=== PATIENT | female | born 1995 | race American Indian/Alaskan Native ===

== ENCOUNTER 2017-03-03 08:36 | Outpatient (CLI) | payer MEDICAID ==
[2017-03-03 09:01] VITALS: BP 108/61
[2017-03-03 09:56] LABS: Bacteria,Urine 2+ /HPF (Negative); Bilirubin,Urine NEG (Negative); Blood,Urine NEG (Negative); Ketones,Urine NEG (Negative); Leukocyte Esterase,Urine SM (Negative); Mucus,Urine FEW /HPF; Nitrite,Urine NEG (Negative); Protein,Urine <15 mg/dL mg/dL (Negative)
== END 2017-03-03 10:09 | disposition home or self-care (01) ==
LOC: TRG 08:36
PROVIDERS: ATTEND Obstetrics & Gynecology
DX: O47.03 False labor before 37 completed weeks of gestation, third trimester (principal); Z3A.30 30 weeks gestation of pregnancy
CPT/HCPCS: 81001

== ENCOUNTER 2018-05-19 19:13 | Emergency (ER) | payer OTHER, MEDICAID ==
[2018-05-19 19:29] VITALS: BP 141/80
--- NOTE | 2018-05-19 19:31 | Emergency Department Report ---
Blank Doc - Documentation Documentation: This is a 22 y.o. 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 Patient is 11 weeks gestation. Patient reports bleeding started out light and increased to heavy bleeding. See is followed by [facility]. Patient can't recall LMP, A0. Ordered labs. Fast track for further evaluation.
[2018-05-19 20:14] LABS: Basophils % (Auto) 0.1 % (0.0-1.8); Eosinophils % (Auto) 0.5 % (0.0-4.3); Hematocrit 33.3 % (30.3-42.9); Lymphocytes # (Auto) 1.9 K/mm3 (1.2-5.4); Lymphocytes % (Auto) 20.4 % (13.4-35.0); Mean Corpuscular HGB Conc 33 % (30-34); Mean Corpuscular Volume 84 fl (79-97); Monocytes # (Auto) 0.7 K/mm3 (0.0-0.8); Platelet Count 263 K/mm3 (140-440); Red Blood Count 3.98 M/mm3 (3.65-5.03)
[2018-05-19 20:19] LABS: Red Cell Distribution Width 20.4 % (13.2-15.2)
--- NOTE | 2018-05-19 22:52 | Ultrasound Report ---
PROCEDURE: US OB <= 14 WEEKS FETUS HISTORY: vaginal bleed FINDINGS: Real-time ultrasound of the pelvis was performed by transabdominal and endovaginal techniqu e. There is an intrauterine gestational sac with size corresponding to 6 weeks and 6 days gestational ag e. No pole or yolk sac is seen. This does not appear to represent a viable gestation. It could represent a blighted ovum. The right ovary measures 2.7 x 1.5 x 2.0 cm contains a hemorrhagic cyst or luteal cyst measuring 1.0 x 1.0 x 0.9 cm. The left or measures 2.8 x 1.3 x 1.7 cm and contains a hemorrhagic cyst or luteal cyst measuring 1.4 x 1.1 x 1.2 cm. IMPRESSION: Intrauterine gestational sac without pole or yolk sac. This does not appear to repr esent a viable gestation but could represent a blighted ovum This document is electronically signed by Theo Rodas MD., May 19 2018 10:50:35 PM ET
--- NOTE | 2018-05-20 00:17 | Emergency Department Report ---
ED HPI - General Chief complaint: Urogenital-Female Stated complaint: 11WEEKS BLEEDING HEAVY Time Seen by Provider: 05/19/18 19:26 Source: patient Mode of arrival: Ambulatory Limitations: No Limitations - History of Present Illness Initial comments: Pt is a 22 yo female who presents to the ED with c/o vaginal bleeding that began 2-3 days ago. She states initially it was just spotting but has become heavier to the point where she is having to use pads. She states that she was told she is 11 weeks gestation by the health clinic. She had not yet had an OB US. She states she has suprapubic cramping but no abdominal pain. The patient denies any fever, N/V/D, urinary sx. /P:1. Pt is unsure of LNMP she believes it was sometime around the end of February. Complaint: vaginal bleeding Onset/Timin -: days(s) Vaginal bleeding: heavy :: Yes Number of weeks : 11 OB History - Previous Pregnancies: no complications - Related Data : 2 Para: 1 Ab: 0 Home Medications Medication Instructions Recorded Confirmed Last Taken No Known Home Medications [No 01/14/17 01/14/17 Unknown Reported Home Medications] Allergies Allergy/AdvReac Type Severity Reaction Status Date / Time No Known Allergies Allergy Verified 01/14/17 17:07 ED Review of Systems ROS: Stated complaint: 11WEEKS BLEEDING HEAVY Other details as noted in HPI Comment: All other systems reviewed and negative Genitourinary: as per HPI. denies: urgency, dysuria, frequency, discharge ED Past Medical Hx - Past Medical History Previous Medical History?: No Hx Hypertension: No Hx Diabetes: No Hx Deep Vein Thrombosis: No Hx Renal Disease: No Hx Sickle Cell Disease: No Hx Seizures: No Hx Asthma: No Hx HIV: No - Surgical History Past Surgical History?: No - Social History Smoking Status: Never Smoker Substance Use Type: None - Medications Home Medications: Home Medications Medication Instructions Recorded Confirmed Last Taken Type No Known Home Medications [No 01/14/17 01/14/17 Unknown History Reported Home Medications] ED Physical Exam - General Limitations: No Limitations General appearance: alert, in no apparent distress - Head Head exam: Present: atraumatic, normocephalic - Eye Eye exam: Present: normal appearance - ENT ENT exam: Present: mucous membranes moist - Respiratory Respiratory exam: Absent: respiratory distress, accessory muscle use - GI/Abdominal GI/Abdominal exam: Present: soft. Absent: distended, tenderness, guarding, rebound, rigid - Neurological Exam Neurological exam: Present: alert, oriented X3 - Psychiatric Psychiatric exam: Present: normal affect, normal mood - Skin Skin exam: Present: warm, dry, intact ED Course Vital Signs 05/19/18 19:28 Temperature 98.9 F Pulse Rate 108 H Respiratory 18 Rate Blood Pressure 141/80 O2 Sat by Pulse 100 Oximetry ED Medical Decision Making - Lab Data Result diagrams: 05/19/18 19:36 Laboratory Results - last 24 hr 05/19/18 05/19/18 05/19/18 19:36 19:36 19:36 WBC 9.4 RBC 3.98 Hgb 11.0 Hct 33.3 MCV 84 MCH 28 MCHC 33 RDW 20.4 H Plt Count 263 Lymph % (Auto) 20.4 Butts % (Auto) 8.0 H Eos % (Auto) 0.5 Baso % (Auto) 0.1 Lymph # 1.9 Butts # 0.7 Eos # 0.0 Baso # 0.0 Seg Neutrophils % 71.0 H Seg Neutrophils # 6.6 HCG, Quant 8095 H Blood Type A POSITIVE Antibody Screen Negative - Radiology Data Radiology results: report reviewed US OB: intrauterine gestation sac without pole or yolk sac. This does not appear to represent a viable gestation but could represent blighted ovum. - Medical Decision Making Pt is a 22 yo female who presents for vaginal bleeding. Pt was told she is 11 weeks by health clinic. Pt has not had a OB US prior to today. She is unsure of LNMP. Based on US does not appear to be a viable gestation but a intrauterine gestation sac is visible. Advised pt she needed to be seen in two days for repeat hcg quant. Advised pt to see an OB but if not can either go back to health clinic or be evaluated in the ED. Pt verbalized understanding. Pt is Rh (+). H/H are stable. Critical care attestation.: If time is entered above; I have spent that time in minutes in the direct care of this critically ill patient, excluding procedure time. ED Disposition Clinical Impression: Threatened Disposition: DC-01 TO HOME OR SELFCARE Is pt being admited?: No Does the pt Need Aspirin: No Condition: Stable Instructions: Threatened Miscarriage (ED) Additional Instructions: Follow up in 2 days with OB doctor or health clinic or may return back to the ED. Return to ED if new or worsening sx. Referrals: OK MENSAH MD [Primary Care Provider] - 3-5 Days Time of Disposition: 00:22 Print Language: SAMI
== END 2018-05-20 00:30 | disposition home or self-care (01) ==
LOC: ED 19:13
DX: O20.0 Threatened abortion (principal); Z3A.11 11 weeks gestation of pregnancy
CPT/HCPCS: 36415; 76801; 76817; 84702; 85025; 86850; 86900; 86901; 99284

== ENCOUNTER 2018-05-22 12:05 | Emergency (ER) | payer MEDICAID, OTHER ==
--- NOTE | 2018-05-22 12:27 | Emergency Department Report ---
Chief Complaint: Vaginal Bleeding Stated Complaint: FOLLOW UP Time Seen by Provider: 05/22/18 12:21 - HPI History of Present Illness: This is a 22 y.o. female that returns for labs to r/o miscarriage. Patient states she was seen here 2 days ago with vaginal bleeding during . She is still bleeding intermittently. Patient reports bleeding is medium today and wearing a niall pad. - ROS Review of Systems: vaginal bleeding and abdominal cramping - Exam Vital Signs: Vital Signs 05/22/18 12:21 Temperature 99.0 F Pulse Rate 86 Respiratory 16 Rate Blood Pressure 126/73 O2 Sat by Pulse 99 Oximetry MSE screening note: Focused history and physical exam performed. Due to findings the following was ordered: labs Fast Track for further evaluation. ED Disposition for MSE Condition: Stable
[2018-05-22 12:44] LABS: Basophils % (Auto) 0.2 % (0.0-1.8); Eosinophils # (Auto) 0.1 K/mm3 (0.0-0.4); Hematocrit 32.4 % (30.3-42.9); Hemoglobin 10.6 gm/dl (10.1-14.3); Lymphocytes # (Auto) 1.6 K/mm3 (1.2-5.4); Lymphocytes % (Auto) 21.1 % (13.4-35.0); Mean Corpuscular HGB Conc 33 % (30-34); Mean Corpuscular Volume 83 fl (79-97); Monocytes # (Auto) 0.6 K/mm3 (0.0-0.8); Platelet Count 259 K/mm3 (140-440); Red Cell Distribution Width 20.1 % (13.2-15.2)
[2018-05-22 13:03] VITALS: BP 126/73
[2018-05-22 13:15] LABS: Bacteria,Urine 1+ /HPF (Negative); Bilirubin,Urine NEG (Negative); Blood,Urine LG (Negative); Color,Urine Yellow (Yellow); Mucus,Urine FEW /HPF; Urobilinogen,Urine < 2.0 mg/dL (<2.0)
--- NOTE | 2018-05-22 16:10 | Emergency Department Report ---
ED HPI - General Chief complaint: Vaginal Bleeding Stated complaint: FOLLOW UP Time Seen by Provider: 05/22/18 12:21 Source: patient, old records reviewed Mode of arrival: Ambulatory Limitations: No Limitations - History of Present Illness Initial comments: 22-year-old female presents to the hospital with her second with complaints of vaginal bleeding times several days. Patient was here 2 days ago. She had ultrasound showing a possible blighted ovum and a beta hCG just over 8000. She continues to have intermittent moderate suprapubic cramping pain and vaginal bleeding 4-5 pads per day. Patient's [facility] doctor is Dr. Petersen in [facility], first appointment scheduled for June 03. Patient has one living child without any history of miscarriages or abortions. - Related Data Previous Rx's Medication Instructions Recorded Last Taken Type Acetaminophen [Tylenol Extra 1 - 2 tab PO Q6HR PRN #20 tablet 05/22/18 Unknown Rx Strength] Allergies Allergy/AdvReac Type Severity Reaction Status Date / Time No Known Allergies Allergy Verified 05/22/18 12:06 ED Review of Systems ROS: Stated complaint: FOLLOW UP Other details as noted in HPI Comment: All other systems reviewed and negative ED Past Medical Hx - Past Medical History Hx Hypertension: No Hx Diabetes: No Hx Deep Vein Thrombosis: No Hx Renal Disease: No Hx Sickle Cell Disease: No Hx Seizures: No Hx Asthma: No Hx HIV: No - Social History Smoking Status: Never Smoker Substance Use Type: None - Medications Home Medications: Home Medications Medication Instructions Recorded Confirmed Last Taken Type Acetaminophen [Tylenol Extra 1 - 2 tab PO Q6HR PRN #20 tablet 05/22/18 Unknown Rx Strength] ED Physical Exam - General Limitations: No Limitations - Other Other exam information: General: No limitations, patient is alert in no acute distress Head exam: Atraumatic, normocephalic Eyes exam: Normal appearance ENT: Moist mucous membrane Neck exam: Normal inspection, full range of motion, no meningismus nontender Respiratory exam: Clear to auscultation bilateral, no wheezes, rales, crackles Cardiovascular: Normal rate and rhythm, normal heart sounds Abdomen: Soft, nondistended, mild suprapubic abdominal tenderness, with normal bowel sounds, no rebound, or guarding Extremity: Full range of motion normal inspection no deformity Back: Normal Inspection, full range of motion, no tenderness Neurologic: Alert, oriented x3, cranial nerves intact, no motor or sensory deficit Psychiatric: normal affect, normal mood Skin: Warm, dry, intact ED Course Vital Signs 05/22/18 12:21 Temperature 99.0 F Pulse Rate 86 Respiratory 16 Rate Blood Pressure 126/73 O2 Sat by Pulse 99 Oximetry ED Medical Decision Making - Lab Data Result diagrams: 05/22/18 12:29 Lab Results 05/22/18 05/22/18 05/22/18 Range/Units 12:29 12:29 12:46 WBC 7.6 (4.5-11.0) K/mm3 RBC 3.90 (3.65-5.03) M/mm3 Hgb 10.6 (10.1-14.3) gm/dl Hct 32.4 (30.3-42.9) % MCV 83 (79-97) fl MCH 27 L (28-32) pg MCHC 33 (30-34) % RDW 20.1 H (13.2-15.2) % Plt Count 259 (140-440) K/mm3 Lymph % (Auto) 21.1 (13.4-35.0) % [place] % (Auto) 8.0 H (0.0-7.3) % Eos % (Auto) 1.0 (0.0-4.3) % Baso % (Auto) 0.2 (0.0-1.8) % Lymph # 1.6 (1.2-5.4) K/mm3 [place] # 0.6 (0.0-0.8) K/mm3 Eos # 0.1 (0.0-0.4) K/mm3 Baso # 0.0 (0.0-0.1) K/mm3 Seg Neutrophils % 69.7 (40.0-70.0) % Seg Neutrophils # 5.3 (1.8-7.7) K/mm3 HCG, Quant 5141 H (0-4) mIU/mL Urine Color Yellow (Yellow) Urine Turbidity Slightly-cloudy (Clear) Urine pH 5.0 (5.0-7.0) Ur Specific [place] 1.028 (1.003-1.030) Urine Protein 30 mg/dl (Negative) mg/dL Urine Glucose (UA) Neg (Negative) mg/dL Urine Ketones Neg (Negative) mg/dL Urine Blood Lg (Negative) Urine Nitrite Neg (Negative) Urine Bilirubin Neg (Negative) Urine Urobilinogen < 2.0 (<2.0) mg/dL Ur Leukocyte Esterase Mod (Negative) Urine WBC (Auto) 21.0 H (0.0-6.0) /HPF Urine RBC (Auto) 21.0 (0.0-6.0) /HPF U Epithel Cells (Auto) 17.0 H (0-13.0) /HPF Urine Bacteria (Auto) 1+ (Negative) /HPF Urine Mucus Few /HPF - Medical Decision Making Patient beta-hCG is rapidly declining consistent with a miscarriage. Initial ultrasound showed blighted ovum. H&H stable without severe pain. Outpatient follow-up encouraged - Differential Diagnosis ectopic, miscarriage, threatened Critical Care Time: No Critical care attestation.: If time is entered above; I have spent that time in minutes in the direct care of this critically ill patient, excluding procedure time. ED Disposition Clinical Impression: Miscarriage Disposition: DC-01 TO HOME OR SELFCARE Is pt being admited?: No Does the pt Need Aspirin: No Condition: Stable Instructions: Spontaneous Miscarriage (ED) Additional Instructions: Take the medication as prescribed. Follow up with your doctor or the clinic/doctor provided. Return if symptoms worsen as indicated by your discharge instructions. Your baby hormone levels are decreasing and it is very likely that you are having a miscarriage. It is very important that you follow up with a [employer] doctor to continue to follow these levels. Take the copy of the labs and ultrasound provided to your doctor for follow-up. Prescriptions: Acetaminophen [Tylenol Extra Strength] 1 - 2 tab PO Q6HR PRN #20 tablet PRN Reason: Pain , Severe (7-10) Referrals: EMMIE SALAZAR MD [Staff Physician] - 3-5 Days BERNIE SAN MD [Staff Physician] - 3-5 Days Time of Disposition: 16:12
== END 2018-05-22 16:23 | disposition home or self-care (01) ==
LOC: ED 12:05
DX: O03.9 Complete or unspecified spontaneous abortion without complication (principal); Z3A.00 Weeks of gestation of pregnancy not specified
CPT/HCPCS: 36415; 81001; 84702; 85025